=== PATIENT | female | born 1985 | race Caucasian/White ===

== ENCOUNTER 2024-04-04 10:40 | Emergency (ER) | payer BC ==
[~2024-04-04] VITALS: Ht 157.5 cm; Wt 71.0 kg
[2024-04-04] MEDS ORDERED: METFORMIN HCL500 M2 PO (11:03)
[2024-04-04] MEDS ORDERED: ZOLOFT25 MG (11:03)
[2024-04-04] MEDS ORDERED: MULTI-VITAMIN1 EACH PO (11:03)
[2024-04-04] MEDS: LIDOCAINE HCL 1% LOCAL INJ 20 ML VIAL INJ ONE (12:00)
[2024-04-04] MEDS ORDERED: TETANUS/DIPHTHERIA TOX ADULT 0.5 ML SYR ONE (12:06)
[2024-04-04] MEDS ORDERED: AMOX TR-K CLV1 EAC2 PO (12:14)
[2024-04-04 12:20] VITALS: PULSE 95; RESP 14; TEMP 98.4; O2SAT 98
[2024-04-04] MEDS: TETANUS/DIPHTHERIA TOX ADULT 0.5 ML SYR IM ONE (14:47)
== END 2024-04-04 12:20 | disposition home or self-care (01) ==
LOC: FSED 10:48
DX: S61.451A Open bite of right hand, initial encounter (principal); S61.211A Laceration without foreign body of left index finger without damage to nail, initial encounter; S61.213A Laceration without foreign body of left middle finger without damage to nail, initial encounter; W54.0XXA Bitten by dog, initial encounter; Y92.89 Other specified places as the place of occurrence of the external cause; E11.9 Type 2 diabetes mellitus without complications; F41.9 Anxiety disorder, unspecified; F32.A Depression, unspecified
CPT/HCPCS: 90471; 90714; 96372; 99284

== ENCOUNTER 2024-04-12 07:38 | Emergency (ER) | payer BC ==
[~2024-04-12] VITALS: Ht 157.5 cm; Wt 71.0 kg
[~2024-04-12 07:38] MED LIST: AMOX TR-K CLV1 EAC2 PO; METFORMIN HCL500 M2 PO; MULTI-VITAMIN1 EACH PO; ZOLOFT25 MG
[2024-04-12 07:40] VITALS: PULSE 85; RESP 20; TEMP 97.6; O2SAT 99
== END 2024-04-12 07:58 | disposition left against medical advice (07) ==
LOC: FSED 07:45
DX: Z48.01 Encounter for change or removal of surgical wound dressing (principal)

== ENCOUNTER 2024-04-15 08:20 | Emergency (ER) | payer BC ==
[~2024-04-15] VITALS: Ht 157.5 cm; Wt 70.4 kg
[2024-04-15 08:28] VITALS: PULSE 104; RESP 16; TEMP 98; O2SAT 98
== END 2024-04-15 08:53 | disposition home or self-care (01) ==
LOC: FSED 08:43
DX: Z48.02 Encounter for removal of sutures (principal)
CPT/HCPCS: 99282